=== PATIENT | female | born 1995 | race Caucasian/White ===

== ENCOUNTER 2016-10-29 08:48 | Emergency (ER) | payer SELFPAY ==
[~2016-10-29] VITALS: Ht 157.5 cm; Wt 82.6 kg
[~2016-10-29 08:48] MED LIST: PNV
[2016-10-29] MEDS ORDERED: SODIUM CHLORIDE 0.9% 1,000 ML IV ONE (09:08)
[2016-10-29 09:30] LABS: HEMOGLOBIN 13.3 g/dL (11.7-16.4)
[2016-10-29] MEDS ORDERED: SODIUM CHLORIDE 0.9% 1,000ML IVBOLUS ONE (09:30)
[2016-10-29 09:38] LABS: BLOOD UREA NITROGEN 10 mg/dL (7-18)
[2016-10-29 11:52] VITALS: BP 103/43
== END 2016-10-29 12:42 | disposition home or self-care (01) ==
LOC: ED 09:21
DX: O20.0 Threatened abortion (principal); Z3A.19 19 weeks gestation of pregnancy; O41.0 Oligohydramnios
CPT/HCPCS: 36415; 76805; 80048; 81003; 82040; 85025; 86901

== ENCOUNTER → 2017-09-04 | Outpatient (CLI) | payer OTHER | LOC: RAD 15:02 | PROVIDERS: ATTEND Family Medicine | DX: R10.9 Unspecified abdominal pain (principal); R31.9 Hematuria, unspecified | CPT/HCPCS: 76700; 76770 ==